=== PATIENT | male | born 1955 | race American Indian/Alaskan Native ===

== ENCOUNTER 2017-10-11 10:46 | Day surgery (SDC) | payer OTHER, BC ==
[2017-10-11] MEDS ORDERED: Iodixanol 320 MG/ML 200 ML BOTTLE IV ONE (12:02)
[2017-10-11] MEDS ORDERED: Iohexol 350mgl/ml 50 ML ONE (12:02)
[2017-10-11] MEDS ORDERED: Lidocaine 2 GM Vial 2 GM/50 ML VIAL IV ONE (12:06)
[2017-10-11] MEDS ORDERED: Midazolam 2 MG/2 ML VIAL ONE (12:25)
[2017-10-11] MEDS ORDERED: Nitroglycerin 50mg in D5W 50 MG/250 ML BOTTLE IV ONE (13:04)
[2017-10-11 13:30] VITALS: BMI 19.0
[2017-10-11] MEDS ORDERED: Oxycodone/Acetaminophen 5/325 mg Tab PO PRN (13:30)
[2017-10-11] MEDS ORDERED: Sodium Chloride 0.9% 1,000 ML IV SCH (13:30)
--- NOTE | 2017-10-11 14:23 | CARDCATH ---
PROCEDURE DATE: 10/11/2017 INDICATIONS: Yung is a pleasant 62-year-old male who presented to [facility] with non-ST elevation MS. He underwent cardiac catheterization showing mid LAD 95% stenosis, was transferred to [place] for PCI of mid LAD. PROCEDURES PERFORMED: Selective left coronary angiogram, percutaneous transluminal coronary angioplasty and stenting of mid left anterior descending 95% stenosis, deployment of 3.5 x 18 mm Easley drug-eluting stent, regeneration from 95% down to 0% RUSSEL-3 flow, 6-Dominican right femoral arterial access, Angio-Seal closure device for hemostasis. TECHNIQUE OF PROCEDURE: The patient was brought to the cardiac catheterization suite in post-absorptive, non-sedated state. The patient was prepped and draped in the usual sterile fashion, 2% lidocaine was used for infiltration of anesthesia. Using modified Seldinger technique, a 6-Dominican sheath was introduced into the right femoral l artery. Subsequently, over a J wire, XB 3 guiding catheter was used to engage the left coronary system. Angiogram was obtained at least to identify the lesion. Run-through wire was crossed across the lesion to the distal LAD. The lesion was predilated with a 2.5 x 15 mm balloon and subsequently, stented with a 3.5 x 18 mm Luis M drug-eluting stent. It was postdilated with a 3.5 non-compliant balloon. Final angiogram showed regeneration down to 0% RUSSEL-3 flow. IMPRESSION: Successful percutaneous transluminal coronary angioplasty and stenting of mid left anterior descending artery, deployment of 3.5 x 18 mm Easley drug-eluting stent. RECOMMENDATIONS: The patient is to be transferred back to [facility] in four hours. Continue with antiplatelet therapy. continue guideline-directed therapy for CAD. The patient can be discharged home in 24 hours and follow up with Dr. Jim who is his primary care physician. Liban Manuel MD [facility]
[2017-10-11 17:39] VITALS: TEMP 97.7
[2017-10-11 20:16] VITALS: BP 152/83; PULSE 63; RESP 18
== END 2017-10-11 21:43 | disposition short-term general hospital (02) ==
LOC: CATH 10:46 → 2RSO 13:52 → CATH 21:43
PROVIDERS: ATTEND Internal Medicine Interventional Cardiology
DX: I21.4 Non-ST elevation (NSTEMI) myocardial infarction (principal); I25.10 Atherosclerotic heart disease of native coronary artery without angina pectoris
CPT/HCPCS: 82948; 85175; 99152; C1725 ×2; C1760; C1769; C1874; C1887; C1894; C9600; J1644 ×2; J2250; J3010; J7030; J7040; Q9966; Q9967